=== PATIENT | male | born 1950 | race Caucasian/White ===

== ENCOUNTER → 2017-05-02 | Outpatient (CLI) | payer BC ==
[~2017-05-02] MED LIST: FLAX10007 PO; GADAVIST IV PRN; KETO0.45 OPL; LISI-725 PO; MULT-506 PO; SIMV20TA2 PO
--- NOTE | 2017-05-02 08:45 | DIAGNOSTIC IMAGING REPORT ---
PROSTATE MRI COMBO CLINICAL HISTORY: 67 years-old Male presenting with prostate carcinoma, status post prostatectomy with positive margins and rising PSA TECHNIQUE: Multisequence, multiplanar MR imaging of the prostate was performed before and after the administration of intravenous contrast. Additional postprocessing was performed on a separate Endoart workstation. The patient was administered 8 cc of intravenous Gadavist. COMPARISON: None. FINDINGS: Prostate: The prostate is surgically absent. There is subtle asymmetric T2 hypointense soft tissue in the left anterolateral periurethral region measuring 11 mm. Postcontrast images demonstrates subtle corresponding early contrast enhancement. There is no significant restricted diffusion. There is no pathologic adenopathy. There are no suspicious areas of marrow replacement. There is a right inguinal hernia. Bladder: There is mild bladder wall thickening. Bowel: Visualized portion of the rectum normal. Peritoneum: No free fluid in the pelvis. Vasculature: Iliac vessels patent. IMPRESSION: 1. Subtle asymmetric T2 hypointense soft tissue in the left anterolateral periurethral region measuring 11 mm. There is subtle corresponding early contrast enhancement. There is no significant restricted water diffusion. While the findings could simply represent postsurgical change, in the setting of a patient status post total prostatectomy with a rising PSA, the findings must be viewed as suspicious for local recurrence. Electronically signed by: Wayne Mcpherson M.D. 05/02/2017 8:44 AM Dictated Date/Time: 05/02/2017 8:35 AM
== END | disposition home or self-care (01) ==
LOC: C.MRIBC 06:37
PROVIDERS: ATTEND Physician Assistant Medical
DX: C61 Malignant neoplasm of prostate (principal); R93.5 Abnormal findings on diagnostic imaging of other abdominal regions, including retroperitoneum

== ENCOUNTER → 2017-09-12 | Outpatient (CLI) | payer BC ==
[~2017-09-12] MED LIST changes: -GADAVIST IV PRN; +PSYL48.59 PO
[2017-09-12 10:43] VITALS: BP 114/75; PULSE 57; TEMP 36.4; O2SAT 96
--- NOTE | 2017-09-12 11:56 | Radiation Oncology Follow-Up ---
Radiation Oncology Follow-Up Date of Visit Sep 12, 2017. Reason For Visit One-month follow-up and cancer survivorship care plan Radiation Completion Date finished 08-15-2017 Diagnosis (1) Prostate cancer Status: Acute Onset Date: 09/02/2016 Location: Both lobes of the prostate Histology Subtype: Adenocarcinoma Stage: lll Permanent Comment: Rising PSA, pretreatment PSA 12.56 Status post ultrasound-guided biopsies 09/02/2016 Adenocarcinoma [place] 3+4, 4+3, and 4+4 Status post robotic prostatectomy 12/23/2016 Shlomo score 4+4 Extraprostatic extension, positive margin, seminal vesicle invasion, perineural invasion Stage pT3b [id number] Post prostatectomy rise in PSA to 0.06 Lupron 7.5 mg IM May 06, 2017 Lupron 45 mg IM June 03, 2017 Status post salvage completion of radiation therapy 08/15/2017 received 7560 cGy Last Edited By: Katiana Morataya on Sep 12, 2017 11:56 History of Present Illness Mr. Aldrich was found to have an elevated PSA and was diagnosed with prostate cancer. His PSA was elevated to 12.56 on 05/07/2016. The patient was seen by Dr. Elizabeth Montalvo who recommended a transrectal ultrasound-guided biopsy of the prostate gland. The patient underwent a transrectal ultrasound-guided biopsy of the prostate gland on 09/02/2016 which revealed prostate adenocarcinoma involving 10/16 cores with the highest Shlomo score being 4+4 = 8 with perineural invasion identified. The patient underwent a a bone scan and CT abdomen of the pelvis on 09/16/2016 which revealed no evidence of distant metastatic disease. The patient was seen by Dr. Hunt from urology in consultation. The patient elected to undergo a radical prostatectomy by Dr. Hunt. The patient underwent a radical prostatectomy and bilateral pelvic lymph node sampling on 12/23/[address] Hunt. Pathology revealed prostate adenocarcinoma that was Shlomo 4+4 with the dominant nodule measuring 2.7 cm in the greatest dimension with associated extraprostatic extension and involving at least 25% of the prostate gland. There was noted to be positive surgical margins involving the apex as well as bilateral seminal vesicle invasion and focal extraprostatic extension. There was also noted to be perineural invasion. A separate apical margin of the prostate gland was obtained and was also positive for prostate adenocarcinoma. 2 left pelvic lymph nodes and 2 right pelvic lymph nodes were sampled and were all negative for metastatic prostate cancer. The patient did have a repeat PSA on 2016 which was elevated to 0.05. The patient was seen in follow-up by Dr. Elizabeth Montalvo from urology who recommended consideration of salvage external beam radiation therapy. We are now seeing the patient in consultation discuss the role of radiation therapy. Hormonal suppression was initiated April 2017. He then returned to our office and underwent salvage radiation therapy. That was completed 08/15/2017. He received 7560 cGy Interim History He has been doing well over the past month. Denies any difficulties with urination. Today he gave an AUA score of 7. He completed and expanded prostate cancer index composite for clinical practice and gave a score of 0 of 12 and urinary incontinence symptoms. He gave a score of 2 of 12 and urinary irritation symptoms. He gives a score of 4 of 12 and bowel symptoms. He gives a score of 8 of 12 and sexual symptoms. He given a score of 0 12 nonhormonal vitality symptoms. His total was 14 of 60. He has continued to take Metamucil 1 packet daily for his bowel symptoms. He denies diarrhea. He does go 6 times a day. Previously and prior to radiation he would move his bowels 3 times a day. He is following with a physical therapist in regards to neck issue. He continues to have cramps of his legs which he is using tonic water to relieve. Allergies Coded Allergies: No Known Allergies (Unverified , 04/25/17) Home Medications Scheduled Flaxseed (Linseed) (Flax Seed Oil), 1 CAP PO DAILY Ketorolac Tromethamine (Ophth) (Acuvail), 1 DROP OPL DAILY Lisinopril (Zestril), 20 MG PO DAILY Multivitamin (Multivitamin), 1 TAB PO DAILY Psyllium (Metamucil), 1 TSP PO DAILY Simvastatin (Zocor), 1 TAB PO DAILY Review of Systems Gastrointestinal: GI Comments: soft stools 6 times a day, used to be 3 times a day Oral: Symptoms: No Problems Respiratory: Symptoms: WNL Urinary: Symptoms: Nocturia Comments: nocturia times 2 Skin: Symptoms: No Problems Physical Exam Vital Signs Date Time Temp Pulse Resp B/P (MAP) Pulse Ox O2 Delivery O2 Flow Rate FiO2 09/12/17 10:43 36.4 57 20 114/75 96 Fatigue: None General Appearance: no apparent distress Eyes: normal inspection, EOMI ENT: normal ENT inspection, hearing grossly normal Respiratory/Chest: lungs clear, no respiratory distress, no accessory muscle use Cardiovascular: regular rate, rhythm, no gallop, no murmur Abdomen: non tender, soft, no organomegaly Extremities: no pedal edema Neurologic/Psychiatric: no motor/sensory deficits, alert, normal mood/affect Skin: warm/dry Pain Management Patient Reports Pain: No Side: Bilateral Patient Preferred Pain Scale: 0 - 10 Initial Pain Intensity: 0.0 Pain Management Plan He denied pain therefore requires no pain management. Laboratory Laboratory Results: not applicable Pathology Pathology Results: not applicable Imaging Imaging Studies: not applicable Assessment & Plan PSA was drawn today. He will be notified as to the results. He will continue regular follow-up with his primary care physician and Dr. Montalvo. We asked him to return to our office in November for recheck visit and Lupron injection. Today we completed the cancer survivorship care plan. A copy of the document was given to the patient. He was given a survivorship booklet. He may call our office if he has any questions or concerns. Assessment & Plan (Attending) I agree with note created by Katiana Morataya PA-C. I reviewed the patient's chart and information with her. I have examined and evaluated the patient. I reviewed relevant clinical information and answered the patient's and/or family' s questions. LOOP SEWER Total Time In Follow-Up I spent 20 minutes speaking to the patient and performing examination. I spent 20 minutes reviewing information, preparing the survivorship document, and completing this note. AK Total Time (Attending) In Follow-Up I spent 15 minutes examining and counseling the patient. LOOP SEWER Copy To Pedrito Hernandez MD; Ayush Hunt MD; Elizabeth Montalvo MD
== END | disposition home or self-care (01) ==
LOC: C.ONC 10:07
PROVIDERS: ATTEND Physician Assistant Medical
DX: Z08 Encounter for follow-up examination after completed treatment for malignant neoplasm (principal); Z92.3 Personal history of irradiation; Z85.46 Personal history of malignant neoplasm of prostate

== ENCOUNTER 2017-10-20 06:22 | Day surgery (SDC) | payer BC ==
[2017-10-14 08:44] VITALS: BMI 29.0
[2017-10-20] VITALS (9 sets, daily range): BP systolic 110–172; BP diastolic 65–89; PULSE 54–78; TEMP 36.2–37.1; O2SAT 92–96; Ht 170.2 cm; Wt 86.4 kg
[~2017-10-20] VITALS: Ht 170.2 cm; Wt 86.4 kg
[~2017-10-20 06:22] MED LIST changes: +CEFAZOLIN 2000MG IV PUSH 15 ML IV SCH; +LACTATED RINGER'S 1000ML 1,000 ML IV SCH
[2017-10-20] MEDS ORDERED: MIDAZOLAM HCL 1 MG/ML 2ML VIAL ONE (07:38)
[2017-10-20] MEDS ORDERED: FENTANYL CITRATE INJ 50 MCG/1 ML 2 ML VIAL ONE ×3 (07:38→09:23)
--- NOTE | 2017-10-20 08:22 | History & Physical Bridge Note ---
H&P Re-Evaluation Bridge Note: I have examined the patient, reviewed the History & Physical and in the interval since the performance of the History & Physical I have noted the following changes of clinical significance: No changes noted
[2017-10-20] MEDS ORDERED: CONRAY 60% 50 ML VIAL ONE (08:26)
[2017-10-20] MEDS ORDERED: CEFAZOLIN SOD 1 GM VIAL ONE (08:26)
[2017-10-20] MEDS ORDERED: BUPIVACAINE 0.5 % 5 MG/1 ML MPF 30ML VIAL ONE (08:26)
[2017-10-20] MEDS ORDERED: HEPARIN SOD (PORCINE) 1000 UNIT/ML 10 ML VIAL ONE (08:26)
[2017-10-20] MEDS ORDERED: MEPERIDINE HCL 25 MG/ML CARP IV PRN (08:30)
[2017-10-20] MEDS ORDERED: ATROPINE SULFATE 0.1 MG/ML 5ML SYR IV PRN (08:30)
[2017-10-20] MEDS ORDERED: EpHEDrine SULFATE INJ 50 MG/ML AMP IV PRN (08:30)
[2017-10-20] MEDS ORDERED: ONDANSETRON INJ 2 MG/ML 2 ML VIAL IV PRN ×2 (08:30→10:45)
[2017-10-20] MEDS ORDERED: LABETALOL HCL IV 5 MG/ML 20ML IV PRN (08:30)
[2017-10-20] MEDS ORDERED: HYDROmorphone INJ 2 MG/ML SYR/VIAL IV PRN (08:30)
[2017-10-20] MEDS ORDERED: LIDOCAINE HCL 2% 2 ML VIAL (20MG/ML) ONE (09:13)
[2017-10-20] MEDS ORDERED: DEXAMETHASONE SOD INJ 4 MG/ML VIAL ONE (09:13)
[2017-10-20] MEDS ORDERED: ONDANSETRON INJ 2 MG/ML 2 ML VIAL ONE (09:13)
[2017-10-20] MEDS ORDERED: NEOSTIGMINE METHYLSULFATE 5 MG/5 ML SYR ONE (09:13)
[2017-10-20] MEDS ORDERED: ROCURONIUM BROMIDE 10 MG/ML 5 ML VIAL IV ONE (09:13)
[2017-10-20] MEDS ORDERED: PROPOFOL IV EMULSION 10 MG/ML 20 ML VIAL IV ONE (09:13)
[2017-10-20] MEDS ORDERED: GLYCOPYRROLATE INJ 0.2 MG/ML VIAL ONE (09:13)
[2017-10-20] MEDS ORDERED: FLOSEAL HEMOSTATIC MATRIX 10ML TOP ONE (10:14)
--- NOTE | 2017-10-20 10:38 | [facility] Post Operative Brief Note ---
Immediate Operative Summary Operative Date Oct 20, 2017. Pre-Operative Diagnosis Gallbladder polyp Post-Operative Diagnosis Gallbladder polyp Procedure(s) Performed Laparoscopic cholecystectomy Surgeon Dr. Efra Gamboa MD Food Counter Worker Surgeon(s) Hilaria Savage PA-C Estimated Blood Loss 25ml Findings Consistent with Post-Op Diagnosis Specimens A. Gallbladder Anesthesia Type General Complication(s) none Disposition Disposition: Recovery Room / PACU
[2017-10-20] MEDS ORDERED: SODIUM CHLORIDE 0.9% 1000ML 1,000 ML IV SCH (10:39)
[2017-10-20] MEDS ORDERED: MoRPHine SULFATE 4 MG/ML 1 ML CARP\\VIAL IV PRN (10:45)
[2017-10-20] MEDS ORDERED: OXYCODONE/ACETAMINOPHEN 5-325 TAB PO PRN (10:45)
[2017-10-20] MEDS: FENTANYL CITRATE INJ 50 MCG/1 ML 2 ML VIAL IV PRN ×3 (11:05→11:19)
--- NOTE | 2017-10-20 11:55 | OPERATIVE REPORT ---
DATE OF OPERATION: 10/20/2017 PREOPERATIVE DIAGNOSIS: Multiple gallbladder polyps. POSTOPERATIVE DIAGNOSIS: Same. PROCEDURE: Laparoscopic cholecystectomy. SURGEON: Efra Gamboa MD TAX ECONOMIST: Hilaria Savage PA-C FINDINGS: The gallbladder was not dilated. The cystic duct was narrow. The liver was of normal size and contour. In dissecting the gallbladder away from the liver, there was a superficial venous sinus that was encountered near the edge of the liver that required special attention in order to control oozing from there. There was no other area of bleeding from the gallbladder bed of the liver. TECHNIQUE: The patient was given a general anesthetic and the area was prepped and draped in the usual sterile fashion. Transverse incision was made below the umbilicus, carried down through the subdermal tissue to the fascia, which was grasped with 2 Andrew clamps and incised between. The peritoneum was identified and incised and the introducer was placed bluntly. The abdomen was then insufflated to a pressure of 15 mmHg of carbon dioxide. The upper midline, midclavicular and anterior axillary introducers were placed under direct vision through small skin incisions. Traction was placed on the gallbladder beginning at the lower portion of the infundibulum and over the neck. The peritoneum was opened and peeled down towards the common bile duct. There was a large amount of fatty tissue beneath the peritoneum that was peeled towards the common bile duct. I then worked on the lateral side of the infundibulum and the peritoneum and divided those attachments, allowing for better mobility. I then worked into the triangle of Calot and opened it and the infundibulum away from the liver on that side. Further dissection of more fatty tissue and larger lymphatics was performed, which allowed me then to identify the anterior surface of the cystic duct. It was then isolated on the lateral side. An additional portion of the gallbladder was dissected away from the liver there. I then worked more on the medial side and that allowed me to identify the medial and lateral sides of the cystic duct and then, I was able to establish a plane behind it, isolating in 360 degrees. Further dissection was then carried out in the triangle of Calot, where the cystic artery was identified and isolated as well. Three clips were placed on the proximal cystic duct, one near the junction with the gallbladder and it was divided. Three clips were placed on the proximal cystic artery, one near its junction with the gallbladder and divided it. The gallbladder was then peeled off the liver bed using electrocautery. The gallbladder was placed into an Endobag and brought out with ease through the upper midline incision. That introducer was replaced and the liver edge was elevated. There was oozing from the gallbladder bed near the edge of the liver. I dissected the liver parenchyma in that area and there was appeared to be a sinus. I tried to isolate it and clamp it, but I was not able to accomplish that. I then grasped the edge of the liver. In doing so, it controlled the bleeding. Three large clips were then placed across the edge of the liver, which also compressed the area, where the sinus was located and there was no further bleeding. The subdiaphragmatic and subhepatic spaces were irrigated and irrigation removed and that was repeated until the return was clear. I placed FloSeal into the gallbladder bed of the liver. Because of the bleeding potential for rebleed, I decided to place a drain, which was a 10-mm Mathew-Perrin placed in the subhepatic space and brought out through the anterior axillary introducer site. That was secured with a 3-0 nylon. The gas was allowed to escape and the introducers were removed. The fascia of the umbilical and upper midline introducer sites was closed with interrupted 0 Vicryl and the skin of all the incisions was closed with 4-0 Monocryl in either an interrupted or running subcuticular fashion. The skin was anesthetized with 0.5% Marcaine. The skin was cleansed, dried, benzoin placed and Steri-Strips applied. The estimated blood loss was 25 mL. Sponge, needle and instrument counts were correct prior to closure. The patient tolerated the surgical procedure without complication and was transferred to recovery. I attest to the content of the Intraoperative Record and any orders documented therein. Any exception s are noted below.
--- NOTE | 2017-10-20 12:44 | Anesthesiology Progress Note ---
Anesthesia Post Op Note Date & Time Oct 20, 2017 at 12:44 Vital Signs Pain Intensity: 0.0 Vital Signs Past 12 Hours Date Time Temp Pulse Resp B/P (MAP) Pulse Ox O2 Delivery O2 Flow Rate FiO2 10/20/17 12:27 36.5 57 18 143/70 (94) 95 Nasal Cannula 2.0 10/20/17 12:18 36.4 54 18 147/81 (103) 93 Nasal Cannula 2.0 10/20/17 11:50 Nasal Cannula 2.0 10/20/17 11:50 37.1 58 18 144/67 (92) 96 Nasal Cannula 2.0 10/20/17 11:50 Nasal Cannula 2.0 10/20/17 11:45 36.7 57 16 149/78 95 Nasal Cannula 2 10/20/17 11:35 58 23 170/90 94 Nasal Cannula 2 10/20/17 11:25 70 22 153/75 95 Nasal Cannula 2 10/20/17 11:15 66 21 155/90 94 Nasal Cannula 2 10/20/17 11:05 56 25 177/81 100 Oxymask 10 10/20/17 10:55 58 20 176/86 99 Oxymask 10 10/20/17 10:48 36.9 73 16 161/98 98 Oxymask 10 10/20/17 06:41 36.6 74 18 150/75 (100) 96 Room Air Notes Mental Status: alert / awake / arousable, participated in evaluation Pt Amnestic to Procedure: Yes Nausea / Vomiting: adequately controlled Pain: adequately controlled Airway Patency, RR, SpO2: stable & adequate BP & HR: stable & adequate Hydration State: stable & adequate Anesthetic Complications: no major complications apparent
[2017-10-20] MEDS ORDERED: IV FLUIDS COMPLETED PRN (16:00)
[2017-10-20] MEDS ORDERED: SIMVASTATIN 20 MG TAB PO SCH (21:00)
[2017-10-20] MEDS ORDERED: LISINOPRIL 20 MG TAB PO SCH (21:00)
[2017-10-21 03:25] VITALS: BP 105/57; PULSE 55; TEMP 36.4; O2SAT 94
[2017-10-21] MEDS ORDERED: SODIUM CHLORIDE 0.9% 1000ML 1,000 ML IV SCH (05:43)
[2017-10-21] MEDS ORDERED: NURSING DECISION MEDICATION ORDER SCH (06:30)
[2017-10-21 07:12] VITALS: BP 129/70; PULSE 45; TEMP 36.3; O2SAT 91
--- NOTE | 2017-10-21 07:15 | Surgery Progress Note ---
Surgery Progress Note Date of Service Oct 21, 2017. Subjective Post OP Day: 1 + pain controlled (having soreness), No nausea, No vomiting no light-headedness or dizziness, didn't sleep well last night Objective Vital Signs: Date Time Temp Pulse Resp B/P (MAP) Pulse Ox O2 Delivery O2 Flow Rate FiO2 10/21/17 03:25 36.4 55 16 105/57 (73) 94 Room Air 10/20/17 23:30 Room Air 10/20/17 23:20 36.9 67 16 129/69 (89) 94 Room Air 10/20/17 19:35 36.8 78 16 110/65 (80) 92 Room Air 10/20/17 16:09 36.2 61 18 157/79 (105) 94 Room Air 10/20/17 15:30 Room Air 10/20/17 13:59 36.7 62 20 143/86 (105) 94 Room Air 10/20/17 13:15 36.8 61 19 172/89 (116) 96 Nasal Cannula 2.0 10/20/17 12:27 36.5 57 18 143/70 (94) 95 Nasal Cannula 2.0 10/20/17 12:18 36.4 54 18 147/81 (103) 93 Nasal Cannula 2.0 10/20/17 11:50 Nasal Cannula 2.0 10/20/17 11:50 37.1 58 18 144/67 (92) 96 Nasal Cannula 2.0 10/20/17 11:50 Nasal Cannula 2.0 10/20/17 11:45 36.7 57 16 149/78 95 Nasal Cannula 2 10/20/17 11:35 58 23 170/90 94 Nasal Cannula 2 10/20/17 11:25 70 22 153/75 95 Nasal Cannula 2 10/20/17 11:15 66 21 155/90 94 Nasal Cannula 2 10/20/17 11:05 56 25 177/81 100 Oxymask 10 10/20/17 10:55 58 20 176/86 99 Oxymask 10 10/20/17 10:48 36.9 73 16 161/98 98 Oxymask 10 Physical Exam: PAOLA drainage (55 cc yesterday, 35 cc first shift, serosanguinous) Abdomen: normal bowel sounds, non distended, soft Laboratory Results: Results Past 24 Hours Test 4/3/18 04:44 Range/Units Assessment & Plan S/P laparoscopic cholecystectomy Stable H&H pending If H&H is okay cnn D/C drain and D/C to home Encourage PO
[2017-10-21 07:37] LABS: BASO % 0.1 %; BASO ABS # 0.01 K/uL (0-0.2); EOS % 0.4 %; EOS ABS # 0.03 K/uL (0-0.5); HEMATOCRIT 33.3 % (42-52); HEMOGLOBIN 11.8 g/dL (14.0-18.0); IG# 0.03 K/uL (0.00-0.02); LYMPH % 16.9 %; LYMPH ABS # 1.22 K/uL (1.2-3.4); MEAN CELL VOLUME 85.2 fL (80-100); MEAN CORPUSCULAR HEMOGLOBIN 30.2 pg (25-34); MEAN CORPUSCULAR HGB CONC 35.4 g/dl (32-36); MEAN PLATELET VOLUME 8.5 fL (7.4-10.4); MONO % 8.2 %; MONO ABS # 0.59 K/uL (0.11-0.59); NEUT ABS # 5.34 K/uL (1.4-6.5); PLATELET COUNT 156 K/uL (130-400); RED CELL DISTRIBUTION WIDTH CV 12.8 % (11.5-14.5); RED CELL DISTRIBUTION WIDTH SD 39.3 fL (36.4-46.3); WHITE BLOOD COUNT 7.22 K/uL (4.8-10.8)
--- NOTE | 2017-10-21 09:23 | Discharge Instructions ---
Discharge Instructions Date of Service Oct 21, 2017. Admission Reason for Admission: Gallbladder Polyp Discharge Discharge Diagnosis / Problem: same Discharge Goals Goal(s): Decrease discomfort, Improve function Activity Recommendations Activity Limitations: per Instructions/Follow-up section No heavy lifting over 20 pounds for 2 weeks No strenuous activity until cleared by surgeon No submerging incisions underwater for 2 weeks (no bathing, swimming, or hot tubs) No driving while taking narcotic pain medication or until you are pain free . Instructions / Follow-Up Instructions / Follow-Up You may shower when you get home. Take outer dressings off and leave steri strips on incisions for 10 days and then remove. They may fall off on their own that is okay. Walking and light activity is encouraged to prevent blood clots from forming in your legs. You will be given narcotic pain medication (Percocet) as needed for moderate to severe pain. This medication may make you drowsy and can cause constipation. You may take OTC stool softener (such as Colace), prune juice, drink plenty of water and daily walking to combat constipation. You may take extra strength Ibuprofen as needed for mild pain and in between doses of Percocet as needed however if you are still taking Percocet do not take Tylenol in between doses as Percocet already has Tylenol in it. If you are no longer taking Percocet then you may take extra strength Tylenol as needed for pain. Follow-up in surgical office in 2 weeks, please call office at [phone] if you do no already have an appointment. Current Hospital Diet Patient's current hospital diet: Regular Diet Discharge Diet Recommended Diet: Regular Diet Procedures Procedures Performed: Laparoscopic cholecystectomy Pending Studies Studies pending at discharge: yes List of pending studies: gallbladder pathology to be reveiwed at follow up visit Medical Emergencies . Who to Call and When: Medical Emergencies: If at any time you feel your situation is an emergency, please call 911 immediately. . Non-Emergent Contact Non-Emergency issues call your: Primary Care Provider, Surgeon Call Non-Emergent contact if: you have a fever, temperature is above 101, your pain is not controlled, your pain is worsening, your pain is unusual for you, wound has increased drainage, wound has increased redness, wound has increased pain . "Provider Documentation" section prepared by Hilariajaison [facility] Drug Monitoring Program Search Results: patient reviewed within database, no issues identified
[2017-10-21] MEDS ORDERED: OXYC-57 PO (11:07)
[2017-10-21 11:49] VITALS: BP 129/70; PULSE 45; TEMP 36.3; O2SAT 91
--- NOTE | 2017-10-24 09:41 | Discharge Summary ---
Discharge Summary Dates Admission Date / Time: Oct 20, 2017 at 10:45 Discharge Date: Oct 21, 2017 Dispostion / Condition Discharge Disposition: Home Condition at Discharge: Good Principal Diagnosis (1) Gallbladder polyp Problem List (1) Prostate cancer Consultations / Procedures Consultations: None Procedures: Laparoscopic cholecystectomy Vaccinations: None Pending Studies / Follow-Up Gallbladder pathology, to be reviewed at follow up visit Medication Reconciliation New Medications: Oxycodone/Acetaminophen 5MG/325MG (Percocet 5MG/325MG) Tab 1 TABLET PO Q4H PRN for Pain, #18 TAB Continued Medications: Flaxseed (Linseed) (Flax Seed Oil) 1,000 Mg Cap 1 CAP PO QAM Ketorolac Tromethamine (Ophth) (Acuvail) 0.45 % Marlena 1 DROP OPL QPM Lisinopril (Zestril) 20 Mg Tab 20 MG PO QPM, TAB Multivitamin (Multivitamin) Tab 1 TAB PO QAM, TAB Psyllium (Metamucil) 48.57 % Pow 1 TSP PO QAM Simvastatin (Zocor) 20 Mg Tab 1 TAB PO QPM for 90 Days, TAB 1 Refill Admission HPI Per the Admitting provider: Patient presented to [facility] for outpatient elective cholecystectomy for gallbladder polyp. Patient underwent went laparoscopic cholecystectomy by Dr. Gamboa. Hospital Course (1) Gallbladder polyp Patient was taken to operating room for laparoscopic cholecystectomy. Patient was found to have sinus in the liver bed once gallbladder removed which was bleeding. Finally able to be controlled with three large clips on the liver edge. Georgina drain was placed to monitor for any bleeding. Patient tolerated procedure well and was transferred to recovery room in stable condition. Patient was admitted to medical surgical floor for observation for one evening. Stated on IV fluids, oral Percocet as needed for pain with breakthrough IV Morphine, IV Zofran as needed for nausea, regular diet, and activity as tolerated. Cbc was repeated in the morning of POD # 1. Patient was evaluated POD # 1. Tolerated regular diet, pain controlled, no nausea or vomiting. Serosanguineous drainage from georgina drain. H&H stable at 11.8/33.3. Patient was discharged home on POD # 1 in stable condition. Overall hospital course was uneventful. Discharge Instructions as given to patient Copies To Primary Care Provider: Pedrito Hernandez MD.
== END 2017-10-21 12:10 | disposition home or self-care (01) ==
LOC: C.ACU 06:22 → C.MSN 10:45 → CANRESERV 11:22 → ENRESERV 11:22
PROVIDERS: ADMIT Surgery; ATTEND Surgery
DX: K81.1 Chronic cholecystitis (principal); I10 Essential (primary) hypertension; H40.9 Unspecified glaucoma; Z90.89 Acquired absence of other organs; Z79.899 Other long term (current) drug therapy; Z87.891 Personal history of nicotine dependence; Z98.41 Cataract extraction status, right eye; Z98.42 Cataract extraction status, left eye; Z80.42 Family history of malignant neoplasm of prostate